=== PATIENT | male | born 1970 | race Caucasian/White ===

== ENCOUNTER → 2021-06-12 | Day surgery (SDC) | payer OTHER ==
[~2021-06-12] VITALS: Ht 175.3 cm; Wt 90.7 kg
[~2021-06-12] MED LIST: BACITRACIN15 GM TOP; BACTRIM DS TAB1 EACH PO; PROTONIX 40MG T40 MG PO
[2021-06-12 07:14] LABS: HCT 47.9 % (42.0-52.0); HGB 16.7 g/dl (13.2-18.0); MCH 30.5 pg (25.0-31.0); MCHC 34.9 g/dL (32.0-36.0); MCV 87.6 fL (78.0-100.0); MPV 10.3 fL (6.0-9.5); RBC 5.47 M/uL (4.70-6.00); RDW 12.1 % (11.5-14.0); WBC 6.1 K/uL (4.0-10.5)
[2021-06-12 07:59] LABS: ALBUMIN 4.1 g/dL (3.4-5.0); BILIRUBIN - TOTAL 0.8 mg/dL (0.2-1.0); BUN/CREAT RATIO (CALC) 18.2 RATIO; CREATININE 0.99 mg/dL (0.67-1.17); GLOBULIN (CALCULATION) 3.4 g/dL; POTASSIUM 4.3 mmol/L (3.5-5.1); TOTAL PROTEIN 7.5 g/dL (6.4-8.2)
== END | disposition home or self-care (01) ==
LOC: FAS 05-28 08:30
PROVIDERS: Surgery
DX: Z12.11 Encounter for screening for malignant neoplasm of colon (principal); Z12.12 Encounter for screening for malignant neoplasm of rectum; K21.9 Gastro-esophageal reflux disease without esophagitis
CPT/HCPCS: 36415; 80053; J2250; J2704; J7120

== ENCOUNTER 2021-11-14 11:02 | Emergency (ER) | payer OTHER | END 2021-11-14 14:14 | disposition home or self-care (01) | LOC: FER 11:02 | DX: R04.0 Epistaxis (principal) | CPT/HCPCS: C9046 ==

== ENCOUNTER 2021-11-25 20:53 | Emergency (ER) | payer OTHER | END 2021-11-25 22:38 | disposition home or self-care (01) | LOC: FER 20:53 | DX: S00.12XA Contusion of left eyelid and periocular area, initial encounter (principal); K21.9 Gastro-esophageal reflux disease without esophagitis; Z79.899 Other long term (current) drug therapy; W54.1XXA Struck by dog, initial encounter | CPT/HCPCS: 70486 ==